=== PATIENT | female | born 1940 | race Caucasian/White ===

== ENCOUNTER 2024-08-24 03:29 | Emergency (ER) | payer MEDICARE ==
[2024-08-24] MEDS ORDERED: Bisacodyl 10 MG SUPP ONE (04:11)
[2024-08-24] MEDS ORDERED: Ondansetron PF 4 MG/2 ML Vial ONE (04:30)
[2024-08-24] MEDS ORDERED: Pantoprazole 40 MG VIAL ONE (04:31)
[2024-08-24 04:38] LABS: #Basophils 0.1 thou/uL (0.0-0.2); #Eosinophils 0.1 thou/uL (0.0-0.7); #Lymphocytes 1.5 thou/uL (1.20-3.40); #Monocytes 1.8 thou/uL (0.11-0.59); #Neutrophils 15.4 thou/uL (1.40-6.50); %Basophils 0.4 % (0.0-1.0); %Eosinophils 0.5 % (0.0-10.0); %Lymphocytes 7.9 % (21.0-51.0); %Monocytes 9.5 % (0.0-10.0); %Neutrophils 81.8 % (42.0-75.0); Hematocrit 41.4 % (36.0-47.0); Hemoglobin 13.3 g/dL (12.0-16.0); Mean Corpuscular Hemoglobin 28.8 pg (27.0-31.0); Mean Corpuscular Volume 89.9 fl (78.0-98.0); Mean Platelet Volume 6.2 fL (7.4-10.4); Platelet Count 435 10x3/uL (130-400); RBC Distribution Width 12.5 % (11.5-14.5); White Blood Cell (WBC) Count 18.8 10x3/uL (4.8-10.8)
[2024-08-24 04:53] LABS: Bilirubin Negative (Negative); Blood, Urine Moderate (Negative); Clarity Cloudy (Clear); Glucose, Urine (Dipstick) Negative (Negative); Ketone, Urine Negative (Negative); Leukocyte Large (Negative); Nitrite Positive (Negative); Protein, Urine (Dipstick) 30 mg/dL (Neg-Trace); Urobilinogen 0.2 mg/dL (Less than 2); pH, Urine 5.5 (5.0-9.0)
[2024-08-24 04:55] LABS: ALT (SGPT) 12 U/L (8-55); AST (SGOT) 13 U/L (5-34); Albumin 2.8 g/dL (3.4-4.8); Alkaline Phosphatase 76 U/L (40-110); Anion Gap 17 mmol/L (10-20); BUN (Urea Nitrogen) 62 mg/dL (9.8-20.1); Bilirubin, Total 0.5 mg/dL (0.2-1.2); Calc. Creatinine Clearance 0 mL/min (70-130); Calcium 9.8 mg/dL (7.8-10.44); Carbon Dioxide 18 mmol/L (23-31); Chloride 106 mmol/L (98-107); Estimated GFR 68; Globulin 4.1 g/dL (2.4-3.5); Glucose 152 mg/dL (83-110); Lipase 51 U/L (8-78); Potassium 4.1 mmol/L (3.5-5.1); Protein, Total 6.9 g/dL (5.8-8.1); Sodium 137 mmol/L (136-145)
[2024-08-24 05:02] LABS: Bacteria/HPF 2+ HPF (None Seen); CAUTI Indications for Culture Pelvic or flank pain; RBC/HPF 0-3 HPF (0-3); Squamous Epithelial 0-3 HPF (0-3); WBC/HPF 21-50 HPF (0-3)
[2024-08-24 05:03] LABS: Yeast-Budding 1+ HPF (None Seen)
[2024-08-24 05:04] LABS: Urine Culture Reflex Yes Yes
[2024-08-24] MEDS ORDERED: cefTRIAXone (ROCEPHIN) 1 GM VIAL ONE (05:21)
[2024-08-24] MEDS ORDERED: Polyethylene Glycol 3350 17 GM Packet PO SCH (08:15)
[2024-08-24] MEDS ORDERED: Mineral Oil ENEMA ONE (08:24)
[2024-08-24] MEDS ORDERED: Piperacillin/Tazobactam 4.5 GM VIAL ONE (09:15)
[2024-08-24] MEDS ORDERED: Sodium Chloride 0.9% 100 ML ONE (09:15)
[2024-08-24] MEDS ORDERED: Iopamidol 370 76% 100 ML VIAL ONE (13:30)
== END 2024-08-24 11:31 | disposition short-term general hospital (02) ==
LOC: BURERS 03:29
DX: K56.41 Fecal impaction (principal); D72.829 Elevated white blood cell count, unspecified; N39.0 Urinary tract infection, site not specified; K52.89 Other specified noninfective gastroenteritis and colitis; Z79.01 Long term (current) use of anticoagulants; Z79.899 Other long term (current) drug therapy
CPT/HCPCS: 74177; 80053; 81001; 83690; 85025; 87077; 87086; 87186; J0696; J2405; J2470; J2543; 36415; 82274; 96365; 96367; 96375; Q9967

== ENCOUNTER 2025-04-15 18:16 | Inpatient (IN) | payer MEDICARE ==
[2025-04-15] MEDS: Baclofen 10 MG TAB PO SCH (21:54)
[2025-04-15] MEDS: Apixaban 2.5 MG TAB PO SCH (21:56)
[2025-04-15] MEDS: Melatonin 3 MG TAB PO SCH (21:57)
[2025-04-15] MEDS: Primidone 50 MG TAB PO SCH (21:58)
[2025-04-15] MEDS: Senokot 8.6 MG TAB PO SCH (21:59)
[2025-04-15] MEDS: Mirabegron ER 25 MG ER.TAB PO SCH (21:59)
[2025-04-15] MEDS: Rosuvastatin 10 MG TAB PO SCH (21:59)
[2025-04-15] MEDS: Cholecalciferol 1,000 UNITS (25 MCG) TAB PO SCH (21:59)
[2025-04-15] MEDS: Famotidine 20 MG TAB PO SCH (21:59)
[2025-04-16 05:09] LABS: Glucose, Urine (Dipstick) Negative (Negative); Leukocyte Small (Negative); Protein, Urine (Dipstick) Negative (Neg-Trace); Specific Gravity, Urine 1.010 (1.005-1.030)
[2025-04-16 05:21] LABS: CAUTI Indications for Culture Alt mental st,lethar; RBC/HPF 0-3 HPF (0-3)
[2025-04-16 05:22] LABS: Bacteria/HPF Rare-Few HPF (None Seen); Yeast-Budding 2+ HPF (None Seen); Yeast-Hyphae 2+ HPF (None Seen)
[2025-04-16 05:23] LABS: Urine Culture Reflex No No
[2025-04-16] MEDS: Nystatin Powder 15 GM BOT TOP SCH (09:05)
[2025-04-17 05:21] LABS: Hematocrit 28.5 % (36.0-47.0); Hemoglobin 9.5 g/dL (12.0-16.0); Mean Corpuscular Hemoglobin 26.2 pg (27.0-31.0); Mean Corpuscular Volume 78.9 fl (78.0-98.0); Platelet Count 382 10x3/uL (130-400); Red Blood Cell (RBC) Count 3.61 mill/uL (4.20-5.40); White Blood Cell (WBC) Count 8.2 10x3/uL (4.8-10.8)
[2025-04-17 05:53] LABS: Calc. Creatinine Clearance 82.0 mL/min (70-130)
[2025-04-17] MEDS: Acetaminophen 325 MG TAB PO PRN (12:22)
[2025-04-21 04:57] LABS: Hematocrit 31.7 % (36.0-47.0); Hemoglobin 10.4 g/dL (12.0-16.0); Platelet Count 465 10x3/uL (130-400)
[2025-04-22 11:24] LABS: #Basophils 0.1 thou/uL (0.0-0.2); #Eosinophils 0.5 thou/uL (0.0-0.7); #Lymphocytes 1.8 thou/uL (1.20-3.40); #Monocytes 0.9 thou/uL (0.11-0.59); #Neutrophils 5.9 thou/uL (1.40-6.50); %Basophils 0.8 % (0.0-1.0); %Eosinophils 5.5 % (0.0-10.0); %Lymphocytes 19.7 % (21.0-51.0); %Monocytes 9.5 % (0.0-10.0); %Neutrophils 64.5 % (42.0-75.0); Hematocrit 28.4 % (36.0-47.0); Hemoglobin 9.6 g/dL (12.0-16.0); Mean Corpuscular Hemoglobin 26.2 pg (27.0-31.0); Mean Corpuscular Volume 77.5 fl (78.0-98.0); Platelet Count 420 10x3/uL (130-400); Red Blood Cell (RBC) Count 3.67 mill/uL (4.20-5.40); White Blood Cell (WBC) Count 9.2 10x3/uL (4.8-10.8)
[2025-04-22 11:44] LABS: ALT (SGPT) Less than 7 U/L (Less than 34); AST (SGOT) 16 U/L (11-34); Albumin 1.9 g/dL (3.1-4.5); Alkaline Phosphatase 65 U/L (40-110); Anion Gap 14 mmol/L (10-20); BUN (Urea Nitrogen) 15 mg/dL (9.8-20.1); Bilirubin, Total 0.2 mg/dL (0.3-1.2); Calc. Creatinine Clearance 82 mL/min (70-130); Calcium 8.1 mg/dL (7.8-10.44); Carbon Dioxide 22 mmol/L (23-31); Chloride 112 mmol/L (98-107); Globulin 3.7 g/dL (2.4-3.5); Glucose 83 mg/dL (83-110); Potassium 2.7 mmol/L (3.5-5.1); Sodium 145 mmol/L (136-145)
[2025-04-23] MEDS: Fluconazole 100 MG TAB PO SCH (10:08)
[2025-04-26 15:43] LABS: #Basophils 0.1 thou/uL (0.0-0.2); #Eosinophils 0.6 thou/uL (0.0-0.7); #Lymphocytes 1.5 thou/uL (1.20-3.40); #Monocytes 0.6 thou/uL (0.11-0.59); #Neutrophils 5.9 thou/uL (1.40-6.50); %Basophils 0.9 % (0.0-1.0); %Eosinophils 6.9 % (0.0-10.0); %Lymphocytes 17.2 % (21.0-51.0); %Monocytes 7.2 % (0.0-10.0); %Neutrophils 67.9 % (42.0-75.0); Hematocrit 33.9 % (36.0-47.0); Hemoglobin 10.4 g/dL (12.0-16.0); Mean Corpuscular Hemoglobin 26.5 pg (27.0-31.0); Mean Corpuscular Volume 86.4 fl (78.0-98.0); Platelet Count 453 10x3/uL (130-400); Red Blood Cell (RBC) Count 3.92 mill/uL (4.20-5.40); White Blood Cell (WBC) Count 8.7 10x3/uL (4.8-10.8)
[2025-04-26 15:59] LABS: ALT (SGPT) 10 U/L (Less than 34); AST (SGOT) 19 U/L (11-34); Albumin 1.8 g/dL (3.1-4.5); Alkaline Phosphatase 79 U/L (40-110); Anion Gap 12 mmol/L (10-20); BUN (Urea Nitrogen) 25 mg/dL (9.8-20.1); Bilirubin, Total 0.1 mg/dL (0.3-1.2); Calc. Creatinine Clearance 83 mL/min (70-130); Calcium 8.4 mg/dL (7.8-10.44); Carbon Dioxide 21 mmol/L (23-31); Chloride 114 mmol/L (98-107); Globulin 3.9 g/dL (2.4-3.5); Glucose 136 mg/dL (83-110); Potassium 3.5 mmol/L (3.5-5.1); Sodium 143 mmol/L (136-145)
[2025-04-27] MEDS: Furosemide 20 MG TAB PO SCH (08:41)
[2025-05-05 11:54] LABS: Anion Gap 16 mmol/L (10-20); BUN (Urea Nitrogen) 22 mg/dL (9.8-20.1); Calc. Creatinine Clearance 57 mL/min (70-130); Calcium 9.0 mg/dL (7.8-10.44); Carbon Dioxide 25 mmol/L (23-31); Chloride 104 mmol/L (98-107); Glucose 96 mg/dL (83-110); Potassium 4.4 mmol/L (3.5-5.1); Sodium 141 mmol/L (136-145)
[2025-05-05 12:10] LABS: #Basophils 0.1 thou/uL (0.0-0.2); #Eosinophils 0.7 thou/uL (0.0-0.7); #Lymphocytes 1.5 thou/uL (1.20-3.40); #Monocytes 1.0 thou/uL (0.11-0.59); #Neutrophils 6.0 thou/uL (1.40-6.50); %Basophils 1.2 % (0.0-1.0); %Eosinophils 7.2 % (0.0-10.0); %Lymphocytes 15.8 % (21.0-51.0); %Monocytes 10.6 % (0.0-10.0); %Neutrophils 65.2 % (42.0-75.0); Hematocrit 30.5 % (36.0-47.0); Hemoglobin 9.8 g/dL (12.0-16.0); Mean Corpuscular Hemoglobin 27.3 pg (27.0-31.0); Mean Corpuscular Volume 84.6 fl (78.0-98.0); Platelet Count 406 10x3/uL (130-400); Red Blood Cell (RBC) Count 3.61 mill/uL (4.20-5.40); White Blood Cell (WBC) Count 9.2 10x3/uL (4.8-10.8)
[2025-05-05 12:41] LABS: Glucose, Urine (Dipstick) Negative (Negative); Leukocyte Small (Negative); Protein, Urine (Dipstick) Negative (Neg-Trace); Specific Gravity, Urine 1.015 (1.005-1.030)
[2025-05-05 12:48] LABS: Bacteria/HPF Rare-Few HPF (None Seen); CAUTI Indications for Culture Alt mental st,lethar; RBC/HPF Greater than 50 HPF (0-3); Yeast-Budding Rare HPF (None Seen); Yeast-Hyphae Rare HPF (None Seen)
[2025-05-05 12:52] LABS: Urine Culture Reflex Yes Yes
[2025-05-08] MEDS: Famotidine 20 MG TAB PO SCH (08:59)
[2025-05-10] MEDS: Fluconazole 100 MG TAB PO SCH (09:51)
[2025-05-12 06:10] LABS: Hematocrit 30.0 % (36.0-47.0); Hemoglobin 9.7 g/dL (12.0-16.0); Platelet Count 454 10x3/uL (130-400)
[2025-05-19 13:06] LABS: Hematocrit 28.9 % (36.0-47.0); Hemoglobin 9.5 g/dL (12.0-16.0); Platelet Count 497 10x3/uL (130-400)
[2025-05-22 10:24] VITALS: BMI 27.0
[2025-05-22 18:03] LABS: ALT (SGPT) 10 U/L (Less than 34); AST (SGOT) 26 U/L (11-34); Albumin 2.4 g/dL (3.1-4.5); Alkaline Phosphatase 83 U/L (40-110); Anion Gap 15 mmol/L (10-20); BUN (Urea Nitrogen) 21 mg/dL (9.8-20.1); Bilirubin, Total 0.2 mg/dL (0.3-1.2); Calc. Creatinine Clearance 70 mL/min (70-130); Calcium 9.1 mg/dL (7.8-10.44); Carbon Dioxide 22 mmol/L (23-31); Chloride 109 mmol/L (98-107); Globulin 4.0 g/dL (2.4-3.5); Glucose 96 mg/dL (83-110); Potassium 3.7 mmol/L (3.5-5.1); Sodium 142 mmol/L (136-145)
[2025-05-23 05:54] VITALS: BP 125/68; TEMP 97.8
[2025-05-23 05:56] VITALS: BMI 26.9
[2025-05-24] MEDS ORDERED: Megestrol Acetate 400 MG/10 ML UDCUP PO SCH (09:00)
== END 2025-05-23 16:45 | DRG 945 ==
LOC: BURMED 19:25
PROVIDERS: ADMIT Family Medicine; ATTEND Family Medicine
PROC: F07Z9ZZ Gait Training/Functional Ambulation Treatment (ICD-10-PCS; principal; 2025-04-15)
PROC: F07 Physical Rehabilitation and Diagnostic Audiology, Rehabilitation, Motor Treatment (ICD-10-PCS; principal; 2025-04-15)
PROC: 3E03329 Introduction of Other Anti-infective into Peripheral Vein, Percutaneous Approach (ICD-10-PCS; principal; 2025-04-15)
DX: R53.1 Weakness (principal); G82.20 Paraplegia, unspecified; I48.20 Chronic atrial fibrillation, unspecified; M46.28 Osteomyelitis of vertebra, sacral and sacrococcygeal region; Z66 Do not resuscitate; R26.89 Other abnormalities of gait and mobility; Z93.59 Other cystostomy status; R25.1 Tremor, unspecified; K59.00 Constipation, unspecified; Z79.899 Other long term (current) drug therapy; E78.5 Hyperlipidemia, unspecified; Z88.8 Allergy status to other drugs, medicaments and biological substances
CPT/HCPCS: 36415; 80048; 80053; 81001; 82565; 85014; 85018; 85025; 85027; 85049; 87086; 97602; J2543; J7030; Q0162